=== PATIENT | male | born 1945 | race Caucasian/White ===

== ENCOUNTER 2017-01-13 03:02 | Inpatient (IN) | payer OTHER ==
[~2017-01-13] VITALS: Ht 175.3 cm; Wt 99.8 kg
[~2017-01-13 03:02] MED LIST: LIPITOR10 M1 PO; SINGULAIR10 M1 PO
--- NOTE | 2017-01-13 07:30 | Operative Report ---
Operative/Inv Procedure Report Surgery Date: 01/13/17 Name of Procedure: 1. C2-7 decompressive laminectomy 2. Posterior C2-7 lateral mass fusion with fernando instrumentation, autograft Pre-Operative Diagnosis: C2-7 stenosis, DDD Post-Operative Diagnosis: same Estimated Blood Loss: less than 50ml Surgeon/Crane Man: REZA PRECIADO,Kevin Diaz MD Anesthesia: general endotracheal tube Monitors: neurophysiologic monitoring Implants: fernando Urine Output: 50CC via shore Drains: medium PRAVEENA Specimens: none Complications: none Condition: stable Operative Indication: Pt 71yo with progressive bilat upper extremity parasthesias and gait instability noted to have multilevel spondylosis and stenosis of the cervical spine from C2- 7 with high grade cord compression and loss of cervical lordosis now presents for surgical decompression and instrumented fusion. Operative/Procedure Note Note: Patient was taken the operating room. After appropriate patient identification and surgical timeout, the patient had neurophysiologic monitoring leads placed and baseline recordings were obtained. He then underwent the smooth induction of general endotracheal anesthesia without incident with the neck in a neutral position. Monitoring was stable. A Shore catheter was sterilely inserted. DVT prophylaxis was utilized throughout the case. Patient was given 2 g of IV Kefzol and preoperative prophylaxis. With all tubes and lines secured in the blood pressure well controlled, the patient was placed in a hard cervical collar and the Durant 3 point head fixation device was applied and carefully turned to the prone position on gel rolls taking care to ensure that all pressure points were well-padded. The neck was maintained in a neutral to slightly lordotic position and fixed to the table. Monitoring was stable with the patient to the prone position. Shoulders were retracted downward with tape. The posterior neck was widely prepped and draped in usual sterile fashion using povidone iodine solution. A small guage spinal needle placed superficially and an intraop xray obtained and confirmed the level of C3. A vertical midline skin incision was marked from C2-T1 and infiltrated with 10 mL of local anesthetic. Skin incision was made with a 10 blade knife. Dissection was carried down through the subcutaneous tissue with the Bovie the ligamentum nuchae a. Ligament was incised in the midline and a subperiosteal dissection of the cervical paravertebral muscles was performed bilaterally with the Bovie exposing underlying spinous processes lamina and facet joints bilaterally. We extended the exposure to the lateral aspect of the lateral masses from C2 to C7 bilaterally and self-retaining retractors were placed beneath the muscle. A [place] 4 elevator was placed in the presumed C2 3 facet joint and a lateral cervical x-ray was obtained and confirmed this to be the correct level. With the levels verified, a total laminectomy of C3, C4, C5, C6, and the rostral half of C7 was performed using combination of the bone scalpel and Kerrison rongeurs. Bone was passed off to the back table and saved for arthrodesis. Hemostasis was obtained with irrigation and flowseal in the lateral epidural gutters. We next proceeded to drilling the lateral masses and decoritcating the facet joints with the drill prior to screw insertion. Entry points for the lateral mass screws were selected from C3 to C7 bilaterally, medial to the midpoint of the lateral mass and marked with a rafal bur. Screw holes were then drilled using the Raizlabs to a depth of 12 mm and with a 30 lateral and rostral angulation. All holes were palpated with a ball-tipped probe and showed no evidence of cortical breakthrough. The holes were sounded with a ball-tipped probe and showed no evidence of cortical breakthrough. We then placed a 3.5 x 162 mm screws bilaterally from C3 to C7 without complication. The facet joints of C2 3, C3 4, C4 5, C5 6, and C6 7 were packed with morcellated autograft packed bilaterally as well as over the dorsal aspect of the lateral masses which were also decorticated. 80 mm titanium rods were then gently lordosis and top loaded into the screws from C2 to C7 bilaterally. Locking caps were placed. The O-arm was brought into play and a spin obtained and confirmed position of the instrumentation. Screws were then finally tightened with an antitorque device. Meticulous hemostasis was achieved using combination of bipolar and Surgifoam. Neurophysiologic monitoring was noted to be stable following the decompression and placement of the instrumentation. The wound was copiously irrigated with sterile saline irrigation. A medium PRAVEENA drain was placed into the wound and secured to the skin with a 2-0 nylon suture. We then began wound closure. Deep muscle was reapproximated with interrupted 0 Vicryl suture. The ligamentum nuchae was reapproximated with interrupted 0 Vicryl suture and the subcutaneous tissue was irrigated and closed in layers with a 203 0 Vicryl suture. The skin was closed with melchor. The wound was cleaned and dried. Bacitracin and a sterile occlusive dressing was placed. Placed in a hard cervical collar, taken out of the [place] and returned to the supine position. He was taken out of the [place], awakened, extubated, and taken to PACU in stable condition. He was noted to be moving all 4 extremities at the completion of the case. All sponge, needle, and instrument counts were correct at the completion of the procedure 3. Neurophysiologic monitoring was stable. the [place], awakened, extubated, and taken to PACU in stable condition. She was noted to be moving all 4 extremities at the completion of the case. All sponge, needle, and instrument counts were correct at the completion of the procedure 3. Neurophysiologic monitoring was stable.
--- NOTE | 2017-01-13 10:02 | RADIOLOGY REPORT ---
EXAMINATION: XR CERVICAL SPINE CLINICAL INFORMATION: Posterior cervical laminectomy. COMPARISON: The scan of the cervical spine dated 12/19/2016. TECHNIQUE: Single lateral view of the cervical spine from C1 to C4 C5 was performed. FINDINGS: The surgical marker is seen projected over the posterior spinous process of the C3 vertebral body. IMPRESSION: Localization of the C3 posterior spinous process.
--- NOTE | 2017-01-13 11:41 | RADIOLOGY REPORT ---
EXAMINATION: XR CERVICAL SPINE CLINICAL INFORMATION: Posterior cervical laminectomy. COMPARISON: C-spine films from earlier today. TECHNIQUE: Single lateral view of the cervical spine. FINDINGS: The C1 through C3-C4 levels of the cervical spine are imaged on lateral projection. A surgical marker is seen projected over the posterior elements of the C3 vertebral body. IMPRESSION: Localization of the posterior elements of the C3 vertebral body.
--- NOTE | 2017-01-13 12:06 | Operative Report ---
Operative/Inv Procedure Report Surgery Date: 01/13/17 Name of Procedure: C3, C4, C5, C6, C7 laminectomies. C3 through C7 posterior lateral arthrodesis utilizing autologous bone graft and Tomas segmental titanium instrumentation. Pre-Operative Diagnosis: Cervical stenosis cervical spondylosis C3 through C7 Post-Operative Diagnosis: Same Estimated Blood Loss: 150cc Surgeon/Music Journalist: KENDY LUIS MD, REZA PRECIADO,JOANNE Contreras Anesthesia: general endotracheal tube Operative/Procedure Note Note: The patient was brought into the operating room and after undergoing endotracheal intubation Zaidi catheterization Venodyne's were placed on both lower extremities. The patient was placed prone on a Hussein frame with all bony prominences well-padded. Patient was connected to a [place] head frame, the neck was kept in a neutral position. The back of the neck was shaved washed with alcohol and Betadine and an prep with ChloraPrep solution. The patient was draped in usual sterile fashion x-ray was used for localization. An incision was made between the C2 and the C7 vertebral developed down through the underlying subcutaneous teeniest tissues. The paraspinal muscles were mobilized out lateral to the level of the facet joints. After x-ray localization, the Masonic's bone scalpel was utilized to complete the laminectomies. 2 troughs were just by the Masonic's bone scalpel to make the airway on either side of the lateral C3-C4 C5-C6 lamina. No downward pressure was placed upon the underlying dura, and the lamina were delivered superiorly. The superior C7 lamina was now removed with the Masonic's bone scalpel bilaterally. All ligamentous tissue was now removed as well and hemostasis was achieved. The set joints were now decorticated as were the posterior lateral aspect of the lateral masses. Morselized bone that was harvested from the patient will spine was now placed over the decorticated surfaces posterolaterally between C3 and C7. The masses were instrumented by placing a commercial airline pilot hole in the midline of each lateral mass 45 instrumentation portal were now placed at C3 through C7 bilaterally at every level. The polyaxial screws were now connected to 2 rods which were bent to the cervical lordosis. Once these were secured copious amounts of irrigation were utilized throughout the wound. A compressive powder was placed in the wound the paraspinal muscles and fascia were reapproximated using interrupted 0 Vicryls inverted Vicryls for the subcutaneous subcutaneous tissues and closure for the skin. Patient was taken extubated to the recovery room having tolerated procedure well.
--- NOTE | 2017-01-13 14:21 | RADIOLOGY REPORT ---
EXAMINATION: XR CERVICAL SPINE/INTRAOPERATIVE FLUOROSCOPY CLINICAL INFORMATION: Posterior cervical laminectomy. COMPARISON: C-spine films from earlier today. TECHNIQUE/FINDINGS: O-Arm equipment was dedicated to the operating room for the performance of posterior cervical laminectomy. Frontal and lateral views of the cervical spine and orbits acquisition of the cervical spine was performed. The patient is status post posterior spinal decompression and fusion with transpedicular screws and rods seen extending from the C3 level down to C7. Evaluation of alignment on the lateral C-spine view is limited due to overlapping soft tissues and bony structures. Straightening of the upper cervical spine is seen. Multilevel degenerative changes are noted throughout the mid and lower cervical spine. Postoperative emphysema and open fascial planes are seen in the posterior midline of the neck. FLUOROSCOPY TIME: 2.83 seconds. IMPRESSION: Status post posterior spinal decompression and fusion from C3 down to C7.
[2017-01-13 16:05] VITALS: BP 122/80
[2017-01-13 18:05] VITALS: BP 158/78
[2017-01-13 18:14] VITALS: BP 158/78
--- NOTE | 2017-01-13 19:59 | PN- Neurosurgical ---
Subjective Subjective: Post op check Patient reporting minimal discomfort at the present time, states that he has been using dilaudid raw scales operator with good effect. Denies chest pain, shortness of breath and difficulty breathing. Denies difficulty swallowing and speaking. Denies nausea and vomitting. Denies numbness and tingling to bilateral upper extremities. 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 Moves all extremities, distal sensation intact, skin warm and well perfused, bilateral calves soft. Assessment/Plan Assessment/Plan This is a 71 year old male, POD 0, s/p C2-7 posterior cervical laminectomy/ fusion. PMH significant for factor 5 leiden deficiency -Bilateral lower extremity u/s tomorrow am as f/u to preoperative study done one week ago, r/o dvt -Hep Sub Q for dvt ppx -OOB with pt after ultrasound -dilaudid raw scales operator for pain -Diet as tolerated -Add saline nasal spray for congestion prn -PRAVEENA to self suction -ancef as abx ppx to be continued until drain is out -Will d/w Dr. Dos Santos Core Measures/Miscellaneous Venous Thromboembolism VTE Risk Factors: Age > 40, Previous VTE (factor 5 ), Surgery VTE Contraindications: No Contraindications VTE Diagnosis: No Beta Lowell Is Beta Lowell a Home Med? No Antibiotics Is Patient on Antibiotics? Yes If Yes: prophylaxis
[2017-01-13 20:05] VITALS: BP 150/80
[2017-01-13 21:30] VITALS: BP 148/72
[2017-01-13 22:01] VITALS: BP 148/82
[2017-01-14] VITALS (8 sets, daily range): BP systolic 138–164; BP diastolic 78–83
--- NOTE | 2017-01-14 07:44 | PN- Neurosurgical ---
Subjective Subjective: Pt doing well. reports incisional post neck and shoulder discomfort. Objective Vital Signs and I&Os Vital Signs Date Time Temp Pulse Resp B/P B/P Pulse O2 O2 Flow FiO2 Mean Ox Delivery Rate 01/14 0412 98.4 80 20 151/83 97 Nasal 2.0L Cannula 01/14 0400 98.4 80 20 151/83 01/14 0200 98.2 78 14 138/78 01/14 0200 98.2 78 14 138/78 96 01/14 0000 98.1 96 16 144/80 01/14 0000 98.1 96 16 144/80 96 Nasal 2.0L Cannula 01/14 0000 96 Nasal 2.0L Cannula 01/13 2314 Nasal 2.0L Cannula 01/13 2201 98.1 95 18 148/82 01/13 2201 98.1 95 18 148/82 95 Nasal 2.0L Cannula 01/13 2130 98.4 96 16 148/72 95 Nasal 2.0L Cannula 01/13 2005 98.1 95 18 150/80 01/13 2005 98.1 95 18 150/80 95 Nasal Cannula 01/13 1814 97.5 103 18 158/78 95 01/13 1805 97.5 103 18 158/78 01/13 1605 Nasal 2.0L Cannula 01/13 1605 98.0 100 18 122/80 01/13 1605 98.0 100 18 122/80 95 Nasal 2.0L Cannula Intake & Output 01/14 0800 01/14 0000 01/13 1600 01/13 0800 01/13 0000 01/12 1600 Intake Total 1300 Output Total 415 Balance 885 Intake, IV 800 Intake, Oral 500 Output, 5 Drainage Output, Urine 410 Patient 99.79 kg Weight Weight Reported by Patient Measurement Method Physical Exam: Pt awake and alert AF, VSS incision is c,d,i with min spotting on dressing PRAVEENA with only 5cc overnight neurologically intact bilat UE, LE with normal motor and pt reports normal sensation to LT laurence po last pm shore in place using IS regularaly SCD in place bilat calves which are soft and NT Current Medications: Current Medications Sig/Dianne Start time Last Medication Dose Route Stop Time Status Admin Acetaminophen 650 MG Q4P PRN 01/13 1423 AC PO Acetaminophen 1,000 MG .STK-MED ONE 01/13 0756 DC IV 01/13 0757 Atorvastatin Calcium 10 MG 1700 07/19 1700 AC PO Bisacodyl 10 MG DAILY NEEDED PRN 01/13 1423 AC MS Cefazolin Sodium 2 GM Q8H 01/13 1700 AC 01/14 N/A 1 UNIT IV 01/15 0929 0200 Cefazolin Sodium 2 GM IQ8 01/13 1600 DC N/A 1 UNIT IV 01/15 0829 Dexamethasone 8 MG .STK-MED ONE 01/13 0757 DC IM 01/13 0758 Diazepam 5 MG Q8P PRN 01/13 1423 AC PO Docusate Sodium 100 MG BID 01/13 2200 AC 01/13 PO 2113 Fentanyl Citrate 250 MCG .STK-MED ONE 01/13 0756 DC IM 01/13 0757 Heparin Sodium 5,000 UNIT Q8 01/14 0600 AC (Porcine) SC Hydromorphone HCl 4 MG Q4P PRN 01/13 1900 AC PO Hydromorphone HCl 2 MG Q4-6 PRN PRN 01/13 1423 AC PO Hydromorphone HCl 1 MG Q4-6 PRN PRN 01/13 1423 AC IV Hydromorphone HCl 2 MG Q4-6 PRN PRN 01/13 1423 DC IV Hydromorphone HCl 50 MG Q24H PRN 01/13 1315 AC Sodium Chloride 45 ML IV Ketorolac 15 MG Q6P PRN 01/13 1423 AC Tromethamine IV 01/18 1422 Midazolam HCl 2 MG .STK-MED ONE 01/13 0756 DC IM 01/13 0757 Montelukast Sodium 10 MG DAILY 01/14 1000 AC PO Ondansetron HCl 4 MG Q6P PRN 01/13 1142 AC IV Remifentanil 5 MG .STK-MED ONE 01/13 0757 DC IV 01/13 0758 Sodium Chloride 1,000 ML Q10H 01/13 1445 AC 01/13 IV 01/14 1044 2114 Zolpidem Tartrate 2.5 MG AT BEDTIME NEED.. 01/13 1423 AC PO Results Recent Imaging Studies: Pt to have bilat LE venous duplex to eval for occult DVT prior to ambulating in light of h/o factor V leiden deficiency Assessment/Plan Assessment/Plan Pt POD1 s/p C3-7 lami and fusion for stenosis and myelopathy and doing well. Neurologically intact. Plan: -bilat LE venous duplex - r/o DVT -OOB if US neg -start hep SQ 5000 q8 -cont HV and abx, will strip tubing to ensure not clotted off -PT eval -reg diet Core Measures/Miscellaneous Venous Thromboembolism VTE Risk Factors: Age > 40, Previous VTE (factor 5 ), Surgery VTE Contraindications: No Contraindications VTE Diagnosis: No Beta Lowell Is Beta Lowell a Home Med? No Antibiotics Is Patient on Antibiotics? Yes If Yes: prophylaxis Attending MD Review Statement Attending Statement Attending MD Statement: examined this patient, discuss w/resident/PA/MEDICINAL CHEMIST, discussed w/nursing
[2017-01-14 09:03] LABS: ABSOLUTE BASOPHIL COUNT 0 /CUMM (0.0-0.2); ABSOLUTE EOSINOPHIL COUNT 0 /CUMM (0.0-0.7); ABSOLUTE GRANULOCYTE CT 8.2 /CUMM (1.4-6.5); ABSOLUTE LYMPH COUNT 1.5 /CUMM (1.2-3.4); ABSOLUTE MONOCYTE COUNT 1.1 /CUMM (0.10-0.60); BASOPHIL % 0.3 % (0.0-2.0); EOSINOPHIL % 0.1 % (0-5); GRANULOCYTE % 75.2 % (42.2-75.2); HEMATOCRIT 39.5 % (42-52); MEAN CORPUSCULAR HGB CONC 33.4 G/DL (33.0-37.0); MEAN CORPUSCULAR VOLUME 92.8 FL (80.0-94.0); MEAN PLATELET VOLUME 9.7 FL (7.4-10.4); PLATELET COUNT 192 /CUMM (130-400); RBC DISTRIBUTION WIDTH 13.3 % (11.5-14.5); RED BLOOD CELL CT 4.26 /CUMM (4.70-6.10); WHITE BLOOD CELL COUNT 10.9 /CUMM (4.8-10.8)
--- NOTE | 2017-01-14 09:30 | NUR ---
NURSING NOTE: PT LEFT FLOOR VIA STRETCHER WITH DISTRIBUTION FOR BLE US. PT AWAKE, A/OX3, 1L NC COWAN/PRAVEENA DRAIN/COLLAR IN PLACE, PAIN CONTROLLED PER PT. DENIES DISTRESS. AWAIT RETURN TO FLOOR. CHAPO TO BE DCD AFTER US RESULTS, Lydia DENNISON AFTER US RESULTS.
--- NOTE | 2017-01-14 10:30 | NUR ---
NURSING NOTE: PT BACK TO FLOOR VIA STRETCHER WITH DISTRIBUTION FROM [facility]. PT AWAKE, A/OX3, ROOM AIR 94%. IV PATENT. PRAVEENA DRAIN/DSG/COLLAR INTACT. SETTLED INTO BED. BED ALARM IN PLACE, NEEDS IN REACH, SFATEY MAINTAINED
--- NOTE | 2017-01-14 10:50 | ULTRASOUND REPORT ---
EXAMINATION: US TRIPLEX OF LOWER EXTREMITIES, BILATERAL CLINICAL INFORMATION: History of DVT. Factor V deficiency, at risk. COMPARISON: 01/08/2017. TECHNIQUE: Color-flow triplex imaging with spectral analysis and compression Doppler were performed on the lower extremities. FINDINGS: There is no thrombosis seen within the bilateral common femoral, femoral, or popliteal veins, nor within the posterior tibial or peroneal veins within the calf. However, there is thrombosis within superficial varicosities in the left posterior calf in the area of pain and palpable abnormality, as well as within the left calf gastrocnemius vein. There is no Gray's cyst. IMPRESSION: Occlusive thrombus within the left gastrocnemius vein within the calf as well as within a superficial varicosity within the left calf. This critical result was communicated with Dr. Dos Santos at 10:45AM on 01/14/2017 and the content and urgency was understood at the time of direct communication.
--- NOTE | 2017-01-14 14:52 | NUR ---
NURSING SHIFT NOTE: PT REMAINS AWAKE, A/OX3, ROOM AIR, HARD COLLAR TO NECK IN PLACE DRESSING AND PRAVEENA DRAIN INTACT; 5ML BLOODY OUTPUT THIS SHIFT, COWAN DCD AT 1140AM; DTV BY 1940PM; URINAL AT BEDSIDE. PT TOLERATED BREAKFAST AND LUNCH, MEDICATED WITH DILAUDID AND TORADOL THIS SHIFT; RESTING COMFORTABLY AT THIS TIME, BED ALARM IN PLACE, TEDS TO BLE. ALP TO R LEG ONLY; SUPERFICIAL CLOT TO L LEG; SC HEPARIN TID PER MD ORDER. OOB WITH RW/ASSIST X1; SAT IN RECLINER FOR APPROX 3 HOURS TODAY, USING INSENTIVE SPIR. DAUGHTER AT BEDSIDE, NEEDS IN REACH, SAFTEY MAINTAINED. WILL GIVE REPORT TO NEXT SHIFT RN.
--- NOTE | 2017-01-15 07:19 | PN- Neurosurgical ---
Subjective Subjective: Pt feeling well. Pain controlled. No calf pain or tenderness. Using warm compresses, leg elevate over night. Objective Vital Signs and I&Os Vital Signs Date Time Temp Pulse Resp B/P B/P Pulse O2 O2 Flow FiO2 Mean Ox Delivery Rate 01/14 2338 98.9 92 20 164/83 94 Room Air 01/14 1418 98.7 86 20 140/80 95 01/14 1358 Room Air 01/14 1219 Room Air 1.0L 01/14 1158 98.6 96 20 146/80 93 Room Air 01/14 1049 20 94 Room Air 01/14 0800 97 Nasal 1.0L Cannula 01/14 0758 98.7 86 20 140/80 95 Room Air Intake & Output 01/15 0800 01/15 0000 01/14 1600 01/14 0800 01/14 0000 01/13 1600 Intake Total 843 982 8972 1300 Output Total 50 925 576 5803 415 Balance -50 62 -15 -503 885 Intake, IV 70 100 800 800 Intake, Oral 840 640 300 500 Number 0 Bowel Movements Output, 50 73 5 3 5 Drainage Output, Urine 103 917 6405 410 Patient 99.79 kg Weight Weight Reported by Patient Measurement Method Physical Exam: AF, VSS awake and alert incision with min serosanguinous dc, flat HV with 50cc overnight serosanguinous neurologically normal ambulating, voiding on own neg melissa's left calf, no swelling or erythema laurence po well Current Medications: Current Medications Sig/Dianne Start time Last Medication Dose Route Stop Time Status Admin Acetaminophen 650 MG .STK-MED ONE 01/15 2020 DC PO 01/14 2021 Acetaminophen 650 MG Q4P PRN 01/13 1423 AC 01/14 PO 2019 Atorvastatin Calcium 10 MG 1700 01/14 1700 AC 01/14 PO 1604 Bisacodyl 10 MG DAILY NEEDED PRN 01/13 1423 AC AZ Cefazolin Sodium 2 GM Q8H 01/13 170 AC 01/15 N/A 1 UNIT IV 01/15 09 0223 Diazepam 5 MG Q8P PRN 01/13 1423 AC 01/14 PO 2134 Docusate Sodium 100 MG BID 01/13 2200 AC 01/14 PO 213 Heparin Sodium 5,000 UNIT Q8 01/14 06 AC 01/15 (Porcine) SC 0635 Hydromorphone HCl 4 MG Q4P PRN 01/13 1900 AC 01/15 PO 0231 Hydromorphone HCl 2 MG Q4-6 PRN PRN 01/13 1423 AC PO Hydromorphone HCl 1 MG Q4-6 PRN PRN 01/13 1423 AC 01/14 IV 1522 Hydromorphone HCl 50 MG Q24H PRN 01/13 1315 DC Sodium Chloride 45 ML IV Ketorolac 15 MG Q6P PRN 01/13 1423 AC 01/15 Tromethamine IV 01/18 1422 0439 Montelukast Sodium 10 MG DAILY 01/14 1000 AC 01/14 PO 0904 Ondansetron HCl 4 MG Q6P PRN 01/13 1142 AC IV Patient Medication 1 ED .STK-MED ONE 01/14 1400 DC Teaching ED 01/14 1401 Sodium Chloride 1,000 ML Q10H 01/13 1445 DC 01/13 IV 01/14 1044 2114 Zolpidem Tartrate 2.5 MG AT BEDTIME NEED.. 01/13 142 AC PO Results Last 48 Hours of Labs: Laboratory Tests 01/14 0654 Hematology CBC w Diff NO MAN DIFF REQ WBC (4.8 - 10.8 /CUMM) 10.9 H RBC (4.70 - 6.10 /CUMM) 4.26 L Hgb (14.0 - 18.0 G/DL) 13.2 L Hct (42 - 52 %) 39.5 L MCV (80.0 - 94.0 FL) 92.8 MCH (27.0 - 31.0 PG) 31.0 RDW (11.5 - 14.5 %) 13.3 Plt Count (130 - 400 /CUMM) 192 MPV (7.4 - 10.4 FL) 9.7 Gran % (42.2 - 75.2 %) 75.2 Lymphocytes % (20.5 - 51.1 %) 14.0 L Monocytes % (1.7 - 9.3 %) 10.4 H Eosinophils % (0 - 5 %) 0.1 Basophils % (0.0 - 2.0 %) 0.3 Absolute Granulocytes (1.4 - 6.5 /CUMM) 8.2 H Absolute Lymphocytes (1.2 - 3.4 /CUMM) 1.5 Absolute Monocytes (0.10 - 0.60 /CUMM) 1.1 H Absolute Eosinophils (0.0 - 0.7 /CUMM) 0 Absolute Basophils (0.0 - 0.2 /CUMM) 0 PUBS MCHC (33.0 - 37.0 G/DL) 33.4 Recent Imaging Studies: Venous Duplex LE FINDINGS: There is no thrombosis seen within the bilateral common femoral, femoral, or popliteal veins, nor within the posterior tibial or peroneal veins within the calf. However, there is thrombosis within superficial varicosities in the left posterior calf in the area of pain and palpable abnormality, as well as within the left calf gastrocnemius vein. There is no Gray's cyst. IMPRESSION: Occlusive thrombus within the left gastrocnemius vein within the calf as well as within a superficial varicosity within the left calf. Assessment/Plan Assessment/Plan Pt POD2 s/p C3-7 lami and fusion and doing well. No evidence of symptomatic LE DVT at this point. Plan: -cont HV until less than 20cc per shift -cont abx -repeat LE duplex to r/o progression of superficial venous thrombus -OOB -dc planning to STR once drain out -cont to mobilize Core Measures/Miscellaneous Venous Thromboembolism VTE Risk Factors: Age > 40, Previous VTE (factor 5 ), Surgery VTE Contraindications: No Contraindications VTE Diagnosis: No Beta Lowell Is Beta Lowell a Home Med? No Antibiotics Is Patient on Antibiotics? Yes If Yes: prophylaxis
[2017-01-15 08:03] VITALS: BP 154/91
--- NOTE | 2017-01-15 09:12 | NUR ---
NURSING NOTE: PT LEFT FLOOR VIA STRETCHER WITH DISTRIBUTION FOR BLE US PER MD ORDER, TEDS TO BLE. IV ANITBX INFUSING, AWAIT RETURN TO FLOOR, DENIES PAIN, HARD COLLAR IN PLACE.
--- NOTE | 2017-01-15 09:51 | ULTRASOUND REPORT ---
EXAMINATION: US TRIPLEX OF LOWER EXTREMITIES, BILATERAL CLINICAL INFORMATION: Superficial venous thrombosis. Rule out DVT. Question propagation. COMPARISON: None TECHNIQUE: Color-flow triplex imaging with spectral analysis and compression Doppler were performed on the lower extremities. FINDINGS: Right: Respiratory variation, normal compression and augmented flow are noted throughout the right lower extremity. The visualized common femoral vein, superficial femoral vein, profunda femoral vein, popliteal vein and midcalf peroneal and posterior tibial venous segments show no evidence of deep venous thrombosis. Left: Respiratory variation, normal compression and augmented flow are noted throughout the lower extremities. The visualized common femoral vein, superficial femoral vein, profunda femoral vein, and popliteal vein segments show no evidence of deep venous thrombosis. There is thrombus seen within the gastrocnemius veins at the proximal to mid calf, with the vein is not compressible. Varicose veins also demonstrate superficial thrombosis of the mid calf. This appearance is unchanged from previous. There is no Gray's cyst. IMPRESSION: No evidence of deep venous thrombosis involving the lower extremities. Unchanged appearance of thrombus within the left gastrocnemius vein at the proximal to mid calf and within a superficial varicosity. No evidence of propagation.
--- NOTE | 2017-01-15 10:10 | NUR ---
NURSING NOTE: PT BACK TO FLOOR VIA STETCHER WITH DISTRIBUTION FROM [facility] US, PT AMBULATED WITH RW/P.T. SETTLED BACK IN BED, WILL MEDICATE FOR PAIN, DAUGHTER AT BEDSIDE, HARD COLLAR IN PLACE, TEDS TO [facility]. ALP TO R LEG.
[2017-01-15 14:51] VITALS: BP 176/88
[2017-01-15 22:30] VITALS: BP 154/84
[2017-01-16 06:41] VITALS: BP 180/90
[2017-01-16 07:27] VITALS: BP 148/80
[2017-01-16 09:40] VITALS: BP 148/80
--- NOTE | 2017-01-16 09:54 | PN- Neurosurgical ---
RASHID FRAZIER 01/16/17 0950: Subjective Subjective: Pt was seen by Dr. Dos Santos this morning. No acute events overnight. Objective Vital Signs and I&Os Vital Signs Date Time Temp Pulse Resp B/P B/P Pulse O2 O2 Flow FiO2 Mean Ox Delivery Rate 01/16 0940 98.9 76 20 148/80 01/16 0727 76 148/80 01/16 0641 98.9 96 20 180/90 96 Room Air 01/15 2230 97.4 104 19 154/84 93 Intake & Output 01/16 1600 01/16 0800 01/16 0000 01/15 1600 01/15 0800 01/15 0000 Intake Total 274 202 0158 390 910 Output Total 20 403 1440 50 848 Balance 620 497 -440 340 62 Intake, IV 160 100 100 150 70 Intake, Oral 480 800 900 240 840 Number 1 0 Bowel Movements Output, 20 3 15 50 73 Drainage Output, Urine 400 1425 775 Physical Exam: Pt was seen and examined by Dr. Dos Santos. Dressing was changed by me. Wound is c /d/i with melchor in place. Mild erythema and postop swelling, but no drainage or evidence of hematoma noted. PRAVEENA output is serosanginous with scant output. Assessment/Plan Assessment/Plan Pt is a 71 yo M w/a hx of factor V deficiency, hyperlipidemia, who is now POD #3 s/p C2-7 posterior laminectomy/fusion. He remains stable from a surgical standpoint and is awaiting PT clearance for discharge to short term rehab. 9:50 am: As instructed by Dr. Dos Santos, PRAVEENA drain was removed. Pt tolerated well. Incision site is c/d/i with melchor in place. No hematoma or evidence of seroma. Hard collar was replaced. Pt will be discharged to short term rehab today. Continue dry dressing changes daily. Core Measures/Miscellaneous Venous Thromboembolism VTE Risk Factors: Age > 40, Surgery VTE Contraindications: No Contraindications VTE Diagnosis: No Beta Lowell Is Beta Lowell a Home Med? No Antibiotics Is Patient on Antibiotics? No
[2017-01-16] MEDS ORDERED: HEPARIN SO5000 UNIT3 SC (09:58)
[2017-01-16] MEDS ORDERED: HYDROMORPHONE HC2 M1 PO ×2 (10:00)
[2017-01-16] MEDS ORDERED: TYLENOL325 M1 PO (10:00)
[2017-01-16] MEDS ORDERED: DOCUSATE SODIU100 M3 PO (10:02)
[2017-01-16] MEDS ORDERED: VALIUM10 M1 PO (10:02)
--- NOTE | 2017-01-16 10:08 | Patient Discharge Instructions ---
Discharge Instructions General Discharge Information You were seen/treated for: CERVICAL SPINAL STENOSIS You had these procedures: c2-7 CERVICAL LAMINECTOMY/FUSION Watch for these problems: Fever greater than 101, redness or drainage from the incision site, chest pain, shortness of breath, leg swelling Call Surgeon to remove: [place] (2 WEEKS POSTOP) Do not soak the wound: Yes Daily wet to dry dressings: No No bath, but you may shower: Yes Other wound care: Patient may shower as desired. Dry dressing change daily. Diet Continue normal diet: Yes Recommended Diet: Regular Activity Full Activity/No Limits: No Activity Self Limited: Yes Pounds, do NOT lift more than: 5 Activity Limited to: Weight bear as tolerated Other activity limits: No strenuous activity or heavy lifting, pushing, or pulling. Avoid bending or twisting. Heart collar should be left in place at all times. Acute Coronary Syndrome Inclusion Criteria At DC or during hospital stay patient has or had the following: ACS DIAGNOSIS No Discharge Core Measures Meds if any: Prescribed or Continued at Discharge Meds if any: NOT Prescribed or Continued at Discharge Congestive Heart Failure Inclusion Criteria At DC or during hospital stay patient has or had the following: CHF DIAGNOSIS No Discharge Core Measures Meds if any: Prescribed or Continued at Discharge Meds if any: NOT Prescribed or Continued at Discharge Cerebrovascular accident Inclusion Criteria At DC or during hospital stay patient has or had the following: CVA/TIA Diagnosis No Discharge Core Measures Meds if any: Prescribed or Continued at Discharge Meds if any: NOT Prescribed or Continued at Discharge Venous thromboembolism Inclusion Criteria VTE Diagnosis No VTE Type NONE VTE Confirmed by (Test) NONE Discharge Core Measures - Per Current guidelines, there needs to be overlap - treatment for the first 5 days of Warfarin therapy. - If discharged on Warfarin prior to 5 days of - overlap therapy, the patient will need to be - assessed for post discharge needs including - *Post discharge parental anticoagulation - *Warfarin and/or parental anticoagulation education - *Follow up date to check INR post discharge At least 5 days overlap therapy as Inpatient No Meds if any: Prescribed or Continued at Discharge Note: Overlap Therapy is Warfarin and Anticoagulant Meds if any: NOT Prescribed or Continued at Discharge
--- NOTE | 2017-01-16 10:14 | Surgical Discharge Summary ---
Visit Information Visit Dates Admission Date: 01/13/17 Discharge Date: 01/16/17 History of Present Illness Chief Complaint: Cervical Spinal stenosis Medical History Blood Transfusion Hx: No Neurological: NONE EENT: NONE Cardiovascular: hyperlipidemia Respiratory: obstructive sleep apnea Gastrointestinal: NONE Hepatic: NONE Renal: NONE Musculoskeletal: NONE Psychiatric: NONE Endocrine: NONE Blood Disorders: NONE Cancer(s): melanoma SHOP DIRECTOR/Reproductive: NONE History of MRSA: No History of VRE: No History of CDIFF: No Isolation History: Standard Surgical History Pertinent Surgical History: laminectomy (CERVICAL), TONSILECTOMY SINUS OPERATION Psychosocial History Where Do You Live? Home Who Do You Live With? Spouse What is Your Primary Language? Kazakh Review of Systems: See H&P Hospital Course Course Attending Physician: REZA PRECIADO,JOANNE Contreras Primary Care Physician: BRITTANY JORDAN MD Hospital Course: Patient is a 71-year-old male with a past medical history significant for factor V deficiency, hyperlipidemia, who presented to [facility] on 01/13/2017 for elective surgery. He underwent C2 through 7 posterior laminectomy and fusion by Dr. Dos Santos and Dr. Barbosa. Tolerated the procedure well and was transferred to the general medical floor postoperatively in stable condition. On postoperative day 1, patient underwent bilateral lower extremity venous Dopplers to screen for DVT due to his history of a hypercoagulable state. This revealed a superficial thrombus of the left lower extremity. No DVT was identified. That he was repeated on postoperative day 2 and found to be unchanged. Patient progressed well with PT, diet was advanced, pain was controlled, and he was subsequently cleared for discharge to short-term rehabilitation. PRAVEENA drain was removed prior to discharge. Subcutaneous heparin should continue postoperatively while in rehabilitation due to patient's increased risk of the VTE. Complications: None Allergies: Coded Allergies: No Known Allergies (01/07/17) Significant Procedures: 01/13/2017 C2 through 7 posterior laminectomy and fusion Disposition Summary Disposition Principal Diagnosis: Cervical spinal stenosis of C2 through 7 Additional Diagnosis: Superficial thrombus of the left lower extremity Discharge Disposition: SNF Discharge Instructions General Discharge Information Code Status: Full Code Patient's Diet: Regular Patient's Activity: Patient may weight-bear with both the upper and lower extremities as tolerated. Hard collar should remain in place at all times. Avoid strenuous activity or heavy lifting, pushing, pulling. Avoid bending or twisting. Follow-Up Instructions/Appts: Dry dressing change once daily. Follow-up with Dr. Dos Santos in 2 weeks for staple removal. Please report any of the following signs and symptoms M.D.: Fever greater than 101, redness, drainage, chest pain, shortness of breath, progressively increasing weakness. Medications at Discharge Discharge Medications: Continue taking these medications: Atorvastatin Calcium (Lipitor) 10 MG TABLET 1 Tablet ORAL DAILY Comments: Last Taken: 01/15/17 Time: 1700PM Montelukast Sodium (Singulair) 10 MG TABLET 1 Tablet ORAL DAILY Comments: Last Taken: 01/16/17 Time: 1000AM Start taking the following new medications: Heparin Sodium,Porcine (Heparin Sodium) 5,000 UNIT/ML VIAL 5,000 Unit Inject into fatty tissue EVERY 8 HOURS Days = 14 No Refills Comments: THIS MUST CONTINUE IN REHAB DUE TO PT'S INCREASED RISK OF VTE. Last Taken: 01/16/17 Time: 1000AM Hydromorphone HCl (Hydromorphone HCl) 2 MG TABLET 1 Tablet ORAL EVERY 4-6 HOURS NEEDED as needed for PAIN SCALE 4-6 ( MODERATE) Days = 7 No Refills Comments: NOT GIVEN Hydromorphone HCl (Hydromorphone HCl) 2 MG TABLET 2 Tablet ORAL EVERY 4 HOURS NEEDED as needed for PAIN SCALE 7-10 (SEVERE) Days = 7 No Refills Comments: Last Taken: 01/16/17 Time: 1000AM Acetaminophen (Tylenol) 325 MG TABLET 2 Tablet ORAL EVERY 4 HOURS NEEDED as needed for pain 1-3 &/or fever > 101.5 Days = 7 No Refills Comments: NOT GIVEN Diazepam (Valium) 10 MG TABLET 1 Tablet ORAL EVERY 8 HOURS NEEDED as needed for SPASM Days = 7 No Refills Comments: Last Taken: 01/15/17 Time: 2200PM Docusate Sodium (Docusate Sodium) 100 MG CAPSULE 1 Capsule ORAL TWICE DAILY Days = 7 No Refills Instructions: HOLD FOR LOOSE BM'S Comments: Last Taken: 01/16/17 Time: 1000AM
== END 2017-01-16 11:54 | DRG 472 ==
LOC: SDA 03:02 → 2NB 03:02 → ENRESERV 13:43 → ENTRNSPT 15:52 → EDTRNSPT 15:58 → EDTRNSPTSTS 15:58 → 2NB 16:05 → CMPTRNSPT 17:45 → 2NB 01-16 11:54
PROVIDERS: ADMIT Neurological Surgery
PROC: 0RG2071 Fusion of 2 or more Cervical Vertebral Joints with Autologous Tissue Substitute, Posterior Approach, Posterior Column, Open Approach (ICD-10-PCS; principal; 2017-01-13)
PROC: 4A11X4G Monitoring of Peripheral Nervous Electrical Activity, Intraoperative, External Approach (ICD-10-PCS; 2017-01-13)
DX: M50.31 Other cervical disc degeneration, high cervical region (principal); M47.12 Other spondylosis with myelopathy, cervical region; D68.51 Activated protein C resistance; M48.02 Spinal stenosis, cervical region; G47.33 Obstructive sleep apnea (adult) (pediatric); E78.5 Hyperlipidemia, unspecified; Z85.820 Personal history of malignant melanoma of skin
CPT/HCPCS: 2NBSP; 36415; 72020; 72040; 87086; 93970; 97116-GO; 97161-GP; 97530-GO; C1713; C9290; J0131; J0690; J1100; J1170; J1644; J1885; J2405; J3370